=== PATIENT | male | born 2000 | race Caucasian/White ===

== ENCOUNTER → 2020-10-25 | Emergency (ER) | payer OTHER ==
[~2020-10-25] VITALS: Ht 183 cm; Wt 79.0 kg
[~2020-10-25] MED LIST: ACHD5005 PO
[2020-10-25 17:21] VITALS: BP 145/82
--- NOTE | 2020-10-25 17:23 | ED Lower Extremity ---
General Chief Complaint: General Problems/Pain Stated Complaint: R KNEE INJ Source: patient Exam Limitations: no limitations History of Present Illness Date Seen by Provider: Oct 25, 2020 Time Seen by Provider: 17:17 Initial Comments To ER by private vehicle with reports of right knee pain. 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 He now has some swelling and pain with full extension or flexion of the knee. Onset: just prior to arrival Severity: moderate Pain/Injury Location: right knee Method of Injury: fell Modifying Factors: Worse With Movement Allergies and Home Medications Home Medications Hydrocodone/Acetaminophen 1 Each Tablet, 1 EACH PO Q4H PRN for PAIN-MILD (1-4) Prescribed by: ROGELIO PIÑA on 10/25/20 0128 Patient Home Medication List Home Medication List Reviewed: Yes Review of Systems Constitutional: see HPI EENTM: see HPI Respiratory: no symptoms reported Cardiovascular: no symptoms reported Genitourinary: no symptoms reported Musculoskeletal: see HPI Skin: no symptoms reported Psychiatric/Neurological: No Symptoms Reported Past Jmyxscb-[id number]-Ltkppp Hx Patient Social History Recent Foreign Travel: No Contact w/Someone Who Travel: No Physical Exam Vital Signs Vital Signs - First Documented 10/25/20 17:21 Temp 36.5 Pulse 91 Resp 20 B/P (MAP) 145/82 (103) Pulse Ox 99 O2 Delivery Room Air Capillary Refill : Height, Weight, BMI Height: '" Weight: lbs. oz. kg; BMI Method: General Appearance: WD/WN, no apparent distress Neck: non-tender, full range of motion Respiratory: no respiratory distress, no accessory muscle use Hips: bilateral hip non-tender, bilateral hip normal inspection, bilateral hip normal range of motion Legs: bilateral leg non-tender, bilateral leg normal inspection, bilateral leg normal range of motion Knees: right knee pain, right knee soft tissue tenderness, right knee swelling Ankles: bilateral ankle non-tender, bilateral ankle normal inspection, bilateral ankle normal range of motion Feet: bilateral foot non-tender, bilateral foot normal inspection, bilateral foot normal range of motion Neurologic/Psychiatric: alert, normal mood/affect Skin: normal color, warm/dry Progress/Results/Core Measures Results/Orders My Orders Orders - ROGELIO PIÑA APRN Knee, Right, 3 Views (10/25/20 17:16) Knee Immobilizer (10/25/20 17:16) Vital Signs/I&O 10/25/20 17:21 Temp 36.5 Pulse 91 Resp 20 B/P (MAP) 145/82 (103) Pulse Ox 99 O2 Delivery Room Air Departure Communication (Admissions) NAME: [facility] REC#: [id number] PT STATUS: REG ER : 2000 PHYSICIAN: ROGELIO PIÑA APRN ADMIT DATE: 10/25/20/ER Draft Date of Exam:10/25/20 KNEE, RIGHT, 3 VIEWS HISTORY: Kicked by a cow, pain in the lateral right knee. TECHNIQUE: 3 views of the right knee COMPARISON: None FINDINGS: No acute fracture or dislocation is seen in the right knee. Alignment appears normal. There is a small right knee joint effusion. There is cortical ossification at the lateral posterior distal right femoral shaft, which is likely due to remote trauma or possibly an osteochondroma. IMPRESSION: 1. Small right knee joint effusion with no acute osseous abnormality seen. 2. Distal right femoral shaft cortical ossification, may be from remote trauma or less likely an osteochondroma. Dictated on workstation # [id number] Dict: 10/25/20 1741 Trans: 10/25/20 1744 [facility] [id number] Interpreted by: PETER LONDON MD Electronically signed by: Impression Primary Impression: Effusion, right knee Additional Impression: Internal derangement of right knee Disposition: 01 HOME, SELF-CARE Condition: Stable Departure-Patient Inst. Decision time for Depature: 17:19 Referrals: NO,LOCAL PHYSICIAN (PCP/Family) Primary Care Physician Patient Instructions: Internal Derangement of the Knee (DC) Add. Discharge Instructions: Use crutches when walking. When you are able to walk without significant pain then you can stop using the crutches. If pain persists beyond the end of next week the neck step would be to see your primary care provider to schedule an MRI to better evaluate the soft tissue structures like the ligaments and the m eniscus. All discharge instructions reviewed with patient and/or family. Voiced understanding. Scripts Hydrocodone/Acetaminophen (Hydrocodone-Acetamin 5-325 mg) 1 Each Tablet 1 EACH PO Q4H PRN for PAIN-MILD (1-4), #14 TAB Prov: ROGELIO PIÑA APRN 10/25/20 ROGELIO PIÑA APRN Oct 25, 2020 17:23
--- NOTE | 2020-10-25 17:44 | Diagnostic Imaging Report ---
HISTORY: Kicked by a cow, pain in the lateral right knee. TECHNIQUE: 3 views of the right knee COMPARISON: None FINDINGS: No acute fracture or dislocation is seen in the right knee. Alignment appears normal. There is a small right knee joint effusion. There is cortical ossification at the lateral posterior distal right femoral shaft, which is likely due to remote trauma or possibly an osteochondroma. IMPRESSION: 1. Small right knee joint effusion with no acute osseous abnormality seen. 2. Distal right femoral shaft cortical ossification, may be from remote trauma or less likely an osteochondroma. Dictated by: Dictated on workstation # [id number]
== END ==
LOC: ER 17:11
DX: M25.461 Effusion, right knee (principal); M23.91 Unspecified internal derangement of right knee
CPT/HCPCS: 73562